=== PATIENT | male | born 1930 | race Caucasian/White ===

== ENCOUNTER 2018-06-07 10:19 | Day surgery (SDC) | payer OTHER, MEDICARE ==
[2018-06-07] MEDS ORDERED: CEFAZOLIN 1 GM/50 ML (PMX) 50 ML IVPB (11:14)
[2018-06-07] MEDS ORDERED: PHENYLephrine (100 MCG/ML) 5ML SYG (11:25)
[2018-06-07] MEDS ORDERED: METOCLOPRAMIDE 10 MG INJ IV (12:00)
[2018-06-07] MEDS ORDERED: FENTAnyl 50 MCG/ML VIAL IV ×2 (12:00)
[2018-06-07] MEDS ORDERED: hydrALAzine 20 MG INJ IV (12:00)
[2018-06-07] MEDS ORDERED: EPHEDrine SULFATE 50 MG/5 ML SYG IV (12:00)
[2018-06-07] MEDS ORDERED: HYDROmorphONE 1 MG/5 ML IV SYRINGE IV ×2 (12:00)
[2018-06-07] MEDS ORDERED: ONDANSETRON 4 MG INJ IV (12:00)
[2018-06-07] MEDS ORDERED: LABETALOL HCL 20MG INJ IV (12:00)
== END 2018-06-07 12:28 | disposition home or self-care (01) ==
LOC: GIL 10:19
DX: R13.13 Dysphagia, pharyngeal phase (principal); I11.0 Hypertensive heart disease with heart failure; I50.9 Heart failure, unspecified; E78.5 Hyperlipidemia, unspecified; Z86.73 Personal history of transient ischemic attack (TIA), and cerebral infarction without residual deficits; I48.0 Paroxysmal atrial fibrillation; Z95.0 Presence of cardiac pacemaker; I42.9 Cardiomyopathy, unspecified; F03.90 Unspecified dementia, unspecified severity, without behavioral disturbance, psychotic disturbance, mood disturbance, and anxiety
CPT/HCPCS: 43246